=== PATIENT | female | born 1945 | race Caucasian/White ===

== ENCOUNTER → 2016-10-12 | Outpatient (CLI) | payer MEDICARE, OTHER ==
[~2016-10-12] MED LIST: ALDACTONE25 MG PO; ATIVAN 0.5MG0.5 MG PO; CENTRUM SILVER1 EAC4 PO; COLACE100 MG PO; COMPAZINE10 MG PO; CPAP INH; FEMARA2.5 MG PO; LEVOTHROID (S200 MCG PO; LEVOTHROID (SY25 MCG PO; MIRALAX17 GM PO; NORCO 5-325 MG1 TAB PO; NORCO 5-325 TA1 EACH PO; PRAVACHOL20 MG PO; SPRYCEL100 MG PO; ULTRAM50 MG PO; VFEND200 MG PO; VITAMIN D10000 UNIT PO; ZOLOFT100 MG PO; ZOVIRAX200 MG PO
== END | disposition disaster alternative care site (69) ==
LOC: GRAD 10:55
DX: C50.412 Malignant neoplasm of upper-outer quadrant of left female breast (principal); D46.21 Refractory anemia with excess of blasts 1; D61.818 Other pancytopenia

== ENCOUNTER 2016-10-24 08:08 | Inpatient (IN) | payer MEDICARE, OTHER ==
[~2016-10-24] VITALS: Ht 170.2 cm; Wt 109.3 kg
--- NOTE | ~2016-10-24 | ER ---
[facility] AGE: 71 Y [address] ROOM: [place] [address] LOCATION: [facility] [place] ADMIT DATE: 10/24/2016 ER/Outpatient Report DISCHARGE DATE: FAMILY PHYSICIAN: BRADLEY PEDROZA MD ATTENDING PHYSICIAN: GILBERT RHODES Time of Arrival: Time of Evaluation: Admission date and time documented in the medical record. I saw the patient at 0825 hours. CHIEF COMPLAINT: Nausea, vomiting, and left leg pain. She also has petechiae that has developed on her face, chest, and extremities. HISTORY OF PRESENT ILLNESS: The patient by history has myelodysplastic syndrome, undergoing oral chemotherapy at the present time. The patient came in thinking that her platelets were low and that was causing her petechiae and bruising. The patient also has a history of thyroid cancer and left breast cancer, status post left mastectomy. No lightheadedness, dizziness, syncope, or near syncope. No fall or trauma. No recent colds, coughs, flus, fever, chills, or sweats. No headache, eyes, ears, nose, throat, neck, or spine pain. No chest pain. Some shortness of breath. No abdominal pain. She has had nausea, vomiting. No diarrhea. No urinary complaints. No joint or muscle swelling, redness, or pain. She has had the petechiae, skin eruptions, and bruising. No history of neurological changes, endocrine problems. The patient does have anxiety and depression, but no psychosis. HOME MEDICATIONS: See attached medication list. ALLERGIES: ERYTHROMYCIN, AMBIEN, AND PERCOCET. SOCIAL HISTORY: Nonsmoker and nondrinker. SIGNIFICANT PAST MEDICAL HISTORY: 1. Left breast cancer. 2. Thyroid cancer. 3. Hypothyroidism. 4. Depression. 5. Anxiety. 6. Obstructive sleep apnea, using CPAP. 7. Myelodysplastic syndrome. [facility] AGE: 71 Y [address] ROOM: [place] [address] LOCATION: [facility] [place] ADMIT DATE: 10/24/2016 ER/Outpatient Report DISCHARGE DATE: FAMILY PHYSICIAN: BRADLEY PEDROZA MD ATTENDING PHYSICIAN: GILBERT RHODES 8. Thyroid cancer. PAST SURGICAL HISTORY: Operations: 1. Left mastectomy. 2. Right breast biopsy. 3. Radiation therapy and chemotherapy. REVIEW OF SYSTEMS: All systems reviewed by me are negative with the exception of those discussed in the History of the Present Illness. PHYSICAL EXAMINATION: VITAL SIGNS: Temperature 99.5, tympanic; pulse 79, regular; respiratory rate 16; blood pressure 181/72; and O2 saturation on room air is 95%. HEENT: Head; normocephalic. No abrasion, contusion, laceration, or swelling of the scalp or face. Eyes; extraocular muscles intact. PERRL. Sclerae and conjunctivae clear, nonicteric. Ears; clear TMs bilaterally. Nose; clear. Throat; clear. Mucous membranes moist. NECK: No nuchal rigidity. No thyromegaly or cervical lymphadenopathy. LUNGS: Clear. Good air flow. No rales, rhonchi, or wheezes. HEART: Regular. Pulses are palpable. No chest wall or ribcage pain to palpation. ABDOMEN: Soft, mildly obese, and nondistended. No organomegaly or abnormal masses palpable. No CVA tenderness. EXTREMITIES: No peripheral edema, cyanosis, or deformity. NEUROLOGIC: Cranial nerves intact. No lateralizing signs. The patient is awake, cooperative. Motor and sensory intact. Vascular intact. SKIN: The patient has petechiae diffusely on her face, chest, and extremities and some bruising on her left chest, and arms and legs. LABORATORY DATA AND IMAGING STUDIES: CBC showed a white count of 3400, 47 segs, 15 lymphs, 2 monos, and 1 eosinophil. Hemoglobin was 7.0 with a hematocrit of 23.6, and platelet count was 6000. Sedimentation rate was 19, PTT was 25, and prothrombin time was 11.4 with an INR of 1.08. Urine showed 10-20 whites, 10-20 reds, 0-2 epithelial cells, negative bacteria per high-powered field, and negative nitrites. CMS was normal except for an elevated glucose of 135, elevated creatinine of 1.3, and low GFR at 40. Amylase was 152, lipase was 213, and CPK was 230. Point of care cardiac enzymes were normal. CRP was 0.91. Lactate was 1.6. Clot tube was drawn. I did send down an order for type and crossmatch 2 units of packed red blood cells plus 2 units of platelets. IMPRESSION: 1. Thrombocytopenia with a platelet count of 6000. Diffuse petechiae and PATIENT'S NAME: CE CALLOWAY [facility] AGE: 71 Y [address] ROOM: [address] [address] LOCATION: [facility] [place] ADMIT DATE: 10/24/2016 ER/Outpatient Report DISCHARGE DATE: FAMILY PHYSICIAN: BRADLEY PEDROZA MD ATTENDING PHYSICIAN: GILBERT RHODES. 2. Anemia with a hemoglobin of 7.0. 3. History of myelodysplastic syndrome. 4. History of left breast cancer. 5. History of thyroid cancer. 6. History of hypothyroidism. 7. History of obstructive sleep apnea, on CPAP. 8. History of depression. PLAN: I did discuss the patient with Dr. Boateng, oncologist. Dr. Boateng wanted to give the patient 2 units of packed red blood cells and 2 units of platelets. The patient will be admitted for observation under the care of Dr. Rhodes, hospitalist. I did discuss the patient with Dr. Rhodes. He will admit the patient. Discussion ensued with the patient concerning my findings and recommendations, she understands. The patient will be admitted for transfusion of 2 units of platelets and 2 units of packed red blood cells. MD NAGI MUELLER/modl /[id number] d: 10/24/16 1255 t: 10/25/16 1837, OUTPATIENT REPORT
--- NOTE | ~2016-10-24 | HP ---
PATIENT'S NAME: CE CALLOWAY [facility] AGE: 71 Y [address] ROOM: [address] [place] [address] LOCATION: [facility] [place] ADMIT DATE: 10/24/2016 History & Physical DISCHARGE DATE: FAMILY PHYSICIAN: BRADLEY PEDROZA MD ATTENDING PHYSICIAN: GILBERT RHODES DATE OF SERVICE: CHIEF COMPLAINT: Lightheadedness and petechia in the abdomen and bilateral upper and lower extremities. HISTORY OF PRESENT ILLNESS: This is a 71-year-old, female with past medical history remarkable for myelodysplastic syndrome diagnosed in September 2016 from a bone marrow biopsy, currently on chemotherapy. The story is that yesterday the patient has been feeling lightheaded, especially when getting up from a sitting position. She also complains of petechia in both wrists and hands and also both lower extremities, in both thighs and calves. Also a few petechial spots in the anterior chest and abdomen. This is new and this happened about a few days ago. Few days ago, she also complained of a few episodes of bright red blood per rectum which already stopped 2 days ago. Her last bowel movement was yesterday and today and they were normal. The patient also had an episode of epistaxis that resolved by itself 2 days ago. Also a few blisters in the oral mucosa, that happened a few days ago. She denies any gross hematuria. She denies any coffee-grounds emesis or hematemesis. She also complained of some pain in the left posterior calf and has also radiated to the left upper thigh. Because of these findings, the patient came here for evaluation. REVIEW OF SYSTEMS: As mentioned in the history of present illness. All other systems reviewed and negative except those mentioned in the history of present illness. PAST MEDICAL HISTORY: 1. Left breast cancer, diagnosed in 2016, status post mastectomy and sentinel lymph node biopsy. 2. Myelodysplastic syndrome, diagnosed in September 2016 from a bone marrow biopsy, currently on chemotherapy. 3. History of thyroid papillary cancer, status post resection, thyroidectomy, and also radioactive iodine ablation. The patient denies any other past medical history. ALLERGIES: THE PATIENT STATES THAT SHE IS ALLERGIC TO PERCOCET, AMBIEN, AND ERYTHROMYCIN. THE PATIENT DOES NOT REMEMBER THE REACTIONS. PATIENT'S NAME: CE CALLOWAY [facility] AGE: 71 Y [address] ROOM: [address] [address] LOCATION: [facility] [place] ADMIT DATE: 10/24/2016 History & Physical DISCHARGE DATE: FAMILY PHYSICIAN: BRADLEY PEDROZA MD ATTENDING PHYSICIAN: GILBERT RHODES MEDICATIONS: Currently have been reconciled. PAST SURGICAL HISTORY: 1. Status post thyroidectomy. 2. Status post left breast cancer, status post mastectomy and lymph nodes sentinel biopsy. 3. Status post bone marrow biopsy. 4. Status post lower back surgery. 5. Status post tonsillectomy. 6. Status post cholecystectomy. SOCIAL HISTORY: The patient quit smoking cigarettes in 1982, she was a former smoker about a half pack per day for roughly 10 years. The patient denies any alcohol or illegal drug use. FAMILY HISTORY: Father from some kind of lung problem that she could not remember. Mother from lung cancer at advanced age. PHYSICAL EXAMINATION: VITAL SIGNS: At the time of my dictation, temperature 98, heart rate 85, respirations 16, blood pressure 122/70, and saturation 96% on room air. GENERAL APPEARANCE: Alert and oriented x3, in no acute distress. HEENT: Pupils are equally round and reactive to light. Extraocular muscles intact. Nasal turbinates are normal bilaterally. Moist oral mucosa. There is some mucositis in the oral mucosa. Some dried blood around the edges of the mucositis. NECK: No JVD. CARDIOVASCULAR: Regular rate and rhythm. Normal S1, S2. No murmur, no rubs, no gallops. RESPIRATORY: Clear. Chest wall nontender to palpation. ABDOMEN: Obese, soft, nontender, and nondistended. Bowel sounds present. No hepatosplenomegaly. No abdominal rigidity. EXTREMITIES: No edema in upper or lower extremity. SKIN: Petechia in both wrists and hands and anterior chest and anterior abdomen as well as bilateral thighs and calves. Also has skin rash like erythema that is nontender around the postsurgical site of the left mastectomy area. Is nontender and also nonpruritic. In the anterior abdominal skin fold area, there is also an area of erythema, is also nontender and also nonpruritic. MUSCULOSKELETAL: No pain on palpation of the bilateral posterior calves and bilateral posterior thighs. Homans sign negative. PATIENT'S NAME: CE CALLOWAY [facility] AGE: 71 Y [address] ROOM: [id number] [place] [id number] LOCATION: [facility] [place] ADMIT DATE: 10/24/2016 History & Physical DISCHARGE DATE: FAMILY PHYSICIAN: BRADLEY PEDROZA MD ATTENDING PHYSICIAN: GILBERT RHODES NEUROLOGICAL: Grossly nonfocal. LABORATORY DATA: Lactic acid 1.6. Troponin less than 0.04. CPK 230. White blood cells 3.4, hemoglobin 7, hematocrit 23.6, MCV 73.3, and platelets 6. Glucose 135, BUN 20, creatinine 1.3, sodium 137, potassium 4.6, chloride 104, and CO2 24. Calcium 8.6, total protein 7.6, albumin 3.8, AST 39, ALT 31, alkaline phosphatase 80, and total bilirubin 0.6. Anion gap 13.6. Globulin 3.8. GFR 40. ESR 19. INR 1.08. PTT 25. Urinalysis: Leukocytes 25, red blood cells 10-20, blood 25, white blood cells 10-20, negative nitrite, negative bacteria. Amylase 152, lipase 213. CK-MB 1.3. CRP 0.91. Procalcitonin less than 0.05. IMAGING STUDIES: KUB shows no free air in the abdomen. Nonspecific bowel gas pattern. Bowel does not appear to be obstructed. ASSESSMENT/PLAN: 1. Petechia from spontaneous hemorrhage in the setting of thrombocytopenia less than 10,000 in the setting of myelodysplastic syndrome: Platelet transfusion 2 units of irradiated platelets. The goal will be to keep the platelets above 50,000 given that patient is actively bleeding from petechia. Also, first we will give the platelet 2 units bolus and then we will check the CBC and give more platelet if necessary. Right after the 2 units of platelets, she will be given packed red blood cell transfusion 2 units also, also run bolus, and we will be checking the hemoglobin and hematocrit 1 hour after the transfusion with the goal be above 8. The platelets and red blood cell transfusion have already been ordered by the primary oncologist, Dr. Boateng. We will be checking vital signs every 2 hours. We will run IV fluids normal saline 100 mL/h. Further plan depends on clinical course. Can have regular diet. Fall precaution. 2. History of bright red blood per rectum: Already resolved according to the patient. In the setting of platelets less than 10,000 and currently having spontaneous hemorrhage from the petechia, I will give her Protonix 40 mg p.o. b.i.d. We will be checking a Hemoccult blood test as well. 3. History of epistaxis and mucositis in the mouth: Currently getting platelet transfusion. Currently does not have active epistaxis and also mucositis is not actively bleeding. 4. Pain in the left posterior calf and left posterior thigh: I will get a venous duplex ultrasound to rule out DVT. If it is positive, the patient cannot be on anticoagulation due to low platelet and active hemorrhage from the petechia. Therefore, she will require IVC filter placement. 5. Lightheadedness: This is likely from dehydration given that she has evidence of acute kidney injury. Also from the acute blood loss anemia from spontaneous hemorrhage from thrombocytopenia. Fall precaution. PATIENT'S NAME: CE CALLOWAY [facility] AGE: 71 Y [address] ROOM: [place] [address] LOCATION: [facility] [place] ADMIT DATE: 10/24/2016 History & Physical DISCHARGE DATE: FAMILY PHYSICIAN: BRADLEY PEDROZA MD ATTENDING PHYSICIAN: GILBERT RHODES 6. Acute kidney injury: Getting normal saline running at 100 mL/h. We will check a renal panel later on. Further plan depends on clinical course. 7. DVT prophylaxis: No pharmacological medication in the setting of active bleeding and thrombocytopenia. No compression devices until DVT has been ruled out from the venous duplex ultrasound. Time spent in care on the day of admission 50 minutes including chart review, interviewing the patient, examining the patient, addressing all the questions and concerns the patient and her family members had, and going over the plan of care with the patient and nurses. Further plan of care will be addressed by the hospitalist who will be taking over the care at 8 AM on 10/24/16. GILBERT RHODES MD CC/modl /[id number] D: 924 T: 750 HISTORY & PHYSICAL
--- NOTE | ~2016-10-24 | DS ---
PATIENT'S NAME: CE CALLOWAY [facility] AGE: 71 Y [address] ROOM: [address] [place] [id number] LOCATION: [facility] [place] ADMIT DATE: 10/25/2016 Discharge Summary DISCHARGE DATE: 10/30/2016 FAMILY PHYSICIAN: Chase Ivey MD ATTENDING PHYSICIAN: Odin Campoverde PRIMARY DIAGNOSES: 1. Right retroperitoneal hemorrhage. 2. Thrombocytopenia secondary to chemotherapy and myelodysplastic syndrome. 3. Myelodysplastic syndrome. 4. Pancytopenia secondary to chemotherapy and myelodysplastic syndrome. 5. Obstipation. 6. Heme-positive stools. 7. Obstructive sleep apnea. 8. History of breast cancer. 9. History of thyroid cancer. OPERATIONS OR PROCEDURES: CT scan of the abdomen and pelvis was carried out on the date of admission demonstrating a right retroperitoneal hemorrhage, measuring 9 x 5 x 7 cm. Soft tissue thickening at the left chest wall. Colon diverticula and right nephrolithiasis. HISTORY OF PRESENTING ILLNESS/REASON FOR ADMISSION: Please refer to the H and P dictated on 10/25/2016. HOSPITAL COURSE: The patient was admitted to the hospital as noted above with a presumptive diagnosis of weakness, rectal bleeding, and petechiae. There was concern for an acute GI bleed. She was noted to be pancytopenic, and reference was made to her significant history of neoplasm and associated chemotherapy treatments. She was hemodynamically stable over the course of her hospital stay. CT scan of the abdomen and pelvis was requested at the point of hospitalization, although somewhat unexpected that it did demonstrate right retroperitoneal fluid collection consistent with hematoma. She was relatively asymptomatic, however. She was monitored clinically and serial hemoglobins were obtained. Her clinical condition remained relatively stable, although she was weak and lightheaded. She did receive PRBC transfusion, and her hemoglobin increased from 5.6 to 8.4. This remained relatively stable over the course of the ensuing days trending down to 8.1 by 10/26/2016 and 7.4 by 10/28/2016. Her platelets were 6 at the point of admission, and she also received platelet transfusion. Her platelets improved significantly to 70, but gradually trended down. She did receive an additional platelet transfusion on [facility] AGE: 71 Y [address] ROOM: [address] [address] LOCATION: [facility] [place] ADMIT DATE: 10/25/2016 Discharge Summary DISCHARGE DATE: 10/30/2016 FAMILY PHYSICIAN: Chase Ivey MD ATTENDING PHYSICIAN: Odin Campoverde 10/29/2016 after her platelets declined to 10. Her stools were heme positive, but in view of the fact that she was thrombocytopenic and otherwise hemodynamically stable, additional gastroenterologic workup was deferred during this hospital stay. It was suggested that she could have gastroenterologic evaluation including endoscopies at some point after discharge. Hematology and Oncology did provide clinical followup during the course of her hospital stay here. She received some physical therapy and occupational therapy for strengthening and gait assessment. By the end of the day 7th day of her hospital stay, it was felt she would be stable enough for discharge home with plans for close clinical followup with Hematology/Oncology and re-transfusion if necessary. DISCHARGE INSTRUCTIONS: DIET: Regular as tolerated. ACTIVITY: As tolerated. MEDICATIONS: 1. Acyclovir 400 mg p.o. b.i.d. 2. Colace 100 mg p.o. b.i.d. 3. Femara 2.5 mg p.o. daily. 4. Levothyroxine 225 mcg p.o. q.a.m. 5. Pravastatin 20 mg p.o. q.h.s. 6. Sertraline 100 mg p.o. daily. 7. Voriconazole 200 mg p.o. b.i.d. 8. MiraLAX 17 g p.o. b.i.d. 9. Multivitamin daily. 10. Vitamin D 10,000 units p.o. weekly. 11. Spironolactone 25 mg p.o. b.i.d. 12. CPAP at h.s. 13. Tramadol 50 to 100 mg p.o. q.6 hours p.r.n. pain. FOLLOWUP: She will follow up with Dr. Boateng in 2 days. She will follow up with Dr. Chase Ivey in 3-5 days. CONDITION ON DISCHARGE: Fair. Total time spent on discharge process 40 minutes. PATIENT'S NAME: HARRYCE [facility] AGE: 71 Y [address] ROOM: [address] [address] LOCATION: [facility] [place] ADMIT DATE: 10/25/2016 Discharge Summary DISCHARGE DATE: 10/30/2016 FAMILY PHYSICIAN: Chase Ivey MD ATTENDING PHYSICIAN: Odin Campoverde MD AJS/modl /[id number] d: 11/09/16304 t: 11/09/16 195, DISCHARGE SUMMARY
--- NOTE | ~2016-10-24 | ENPV ---
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 Venous hemodynamics were evaluated with color flow and spectral Doppler. FINDINGS: The deep veins of the legs bilaterally show normal color flow and compressibility without thrombosis. IMPRESSION: NEGATIVE BILATERAL LOWER EXTREMITY VENOUS DOPPLER STUDY. Procedure Type of Study: Veins:Lower Extremities DVT Study, Venous Duplex Lower Extremity Bilateral. Patient Status:Routine. Study Location:Inpatient Portable. Velocities are measured in cm/s ; Diameters are measured in cm Right Lower Extremities DVT Study Measurements Right 2D and Doppler Measurements + + + + +------+------+ + !Location !Visualized!Compressibility!Thrombosis!Signal!Reflux!Reflux ! ! ! ! ! ! ! !(sec) ! + + + + +------+------+ + !GSV Thigh !Yes !Yes !None !Phasic!No ! ! + + + + +------+------+ + !Common !Yes !Yes !None !Phasic!No ! ! !Femoral ! ! ! ! ! ! ! + + + + +------+------+ + !Prox !Yes !Yes !None !Phasic!No ! ! !Femoral ! ! ! ! ! ! ! + + + + +------+------+ + !Mid Femoral!Yes !Yes !None !Phasic!No ! ! + + + + +------+------+ + !Dist !Yes !Yes !None !Phasic!No ! ! !Femoral ! ! ! ! ! ! ! + + + + +------+------+ + !Popliteal !Yes !Yes !None !Phasic!No ! ! + + + + +------+------+ + !Gastroc !Yes !Yes !None !Phasic!No ! ! + + + + +------+------+ + !PTV !Yes !Yes !None !Phasic!No ! ! + + + + +------+------+ + !Peroneal !Yes !Yes !None !Phasic!No ! ! + + + + +------+------+ + Left Lower Extremities DVT Study Measurements Left 2D and Doppler Measurements + + + + +------+------+ + !Location !Visualized!Compressibility!Thrombosis!Signal!Reflux!Reflux ! ! ! ! ! ! ! !(sec) ! + + + + +------+------+ + !GSV Thigh !Yes !Yes !None !Phasic!No ! ! + + + + +------+------+ + !Common !Yes !Yes !None !Phasic!No ! ! !Femoral ! ! ! ! ! ! ! + + + + +------+------+ + !Prox !Yes !Yes !None !Phasic!No ! ! !Femoral ! ! ! ! ! ! ! + + + + +------+------+ + !Mid Femoral!Yes !Yes !None !Phasic!No ! ! + + + + +------+------+ + !Dist !Yes !Yes !None !Phasic!No ! ! !Femoral ! ! ! ! ! ! ! + + + + +------+------+ + !Popliteal !Yes !Yes !None !Phasic!No ! ! + + + + +------+------+ + !Gastroc !Yes !Yes !None !Phasic!No ! ! + + + + +------+------+ + !PTV !Yes !Yes !None !Phasic!No ! ! + + + + +------+------+ + !Peroneal !Yes !Yes !None !Phasic!No ! ! + + + + +------+------+ + Signature dtt: dtkyle: 10/24/16 1433 Physician Self Edit
[~2016-10-24 08:08] MED LIST changes: -COLACE100 MG PO; -COMPAZINE10 MG PO; -FEMARA2.5 MG PO; -MIRALAX17 GM PO; -SPRYCEL100 MG PO; -ULTRAM50 MG PO; -VFEND200 MG PO; -ZOVIRAX200 MG PO
[2016-10-24 09:00] LABS: HEMATOCRIT 23.6 % (33.0-46.0); RDW-CV 17.5 % (11.9-14.6); WBC 3.4 K/uL (4.0-11.0)
[2016-10-24 09:18] LABS: INR - (THERAPEUTIC) 1.08 (0.92-1.07); PROTIME 11.4 SECONDS (9.8-11.4); PTT 25 SECONDS (25-32)
[2016-10-24 09:20] LABS: ALBUMIN 3.8 gm/dL (3.5-5.0); ALK PHOS 80 IU/L (33-138); ALT 31 IU/L (12-78); ANION GAP 13.6 (10.0-19.0); AST 39 IU/L (10-40); BLOOD UREA NITROGEN 20 mg/dL (6-24); CALCIUM 8.6 mg/dL (8.5-10.5); CHLORIDE 104 mMol/L (96-110); CO2 24 mMol/L (22-32); CPK 230 IU/L (21-215); CREATININE 1.3 mg/dL (0.5-1.1); POTASSIUM 4.6 mMol/L (3.7-5.1); SODIUM 137 mMol/L (135-145); TOTAL BILIRUBIN 0.6 mg/dL (0.0-1.5); TOTAL PROTEIN 7.6 g/dL (6.0-8.4)
[2016-10-24 09:21] LABS: ESTIMATED GFR (MDRD EQUATION) 40
[2016-10-24 09:29] LABS: MCH 21.7 pg (27.0-34.0); MCHC 29.7 gm/dL (32.0-36.5); MCV 73.3 fl (83.0-98.0); RBC 3.22 M/uL (3.50-5.50)
[2016-10-24 09:30] LABS: PLATELET COUNT 6 K/uL (150-450)
[2016-10-24 09:39] LABS: ABSOLUTE NEUTROPHIL CT (ANC) 1.6 K/uL (1.8-7.8); LYMPHOCYTE # 1.7 K/uL (0.8-4.0); LYMPHOCYTE % 50 %; MONOCYTE # 0.1 K/uL (0.0-1.0); SEGMENTED NEUTROPHIL # 1.6 K/uL (1.8-7.8); SEGMENTED NEUTROPHIL % 47 %
[2016-10-24 10:04] LABS: BILIRUBIN URINE NEGATIVE (NEGATIVE); BLOOD URINE 25 /UL (NEGATIVE); COLOR URINE YELLOW (YELLOW); GLUCOSE URINE NEGATIVE (NEGATIVE); KETONE URINE NEGATIVE (NEGATIVE); LEUKOCYTES URINE 25 /UL (NEGATIVE); NITRITE URINE NEGATIVE (NEGATIVE); PROTEIN URINE 30 mg/dL (NEGATIVE); SPEC GRAVITY URINE 1.015 (1.003-1.035); TURBIDITY URINE CLEAR (CLEAR); UROBILINOGEN URINE NORMAL (NORMAL)
[2016-10-24 10:18] LABS: BACTERIA URINE NEGATIVE (NEGATIVE); EPITHELIAL URINE 0-2 #/HPF (NEGATIVE)
[2016-10-24 15:53] LABS: HEMATOCRIT 19.1 % (33.0-46.0); RBC 2.58 M/uL (3.50-5.50); RDW-CV 17.7 % (11.9-14.6)
[2016-10-24 16:01] LABS: MCH 21.7 pg (27.0-34.0); MCHC 29.3 gm/dL (32.0-36.5); WBC 1.9 K/uL (4.0-11.0)
[2016-10-24 16:02] LABS: PLATELET COUNT 70 K/uL (150-450)
[2016-10-24 16:04] LABS: HEMOGLOBIN 5.6 g/dL (10.0-15.0)
[2016-10-24 17:51] LABS: ABSOLUTE NEUTROPHIL CT (ANC) 1.1 K/uL (1.8-7.8); BANDED NEUTROPHIL # 0.1 K/uL (0.0-0.1); BANDED NEUTROPHILS % 6 %; LYMPHOCYTE # 0.8 K/uL (0.8-4.0); LYMPHOCYTE % 40 %; SEGMENTED NEUTROPHIL % 53 %
[2016-10-24] MEDS ORDERED: ULTRAM50 MG PO (19:02)
[2016-10-24] MEDS ORDERED: COMPAZINE10 MG PO (19:02)
[2016-10-24] MEDS ORDERED: VFEND200 MG PO (19:04)
[2016-10-24] MEDS ORDERED: FEMARA2.5 MG PO (19:04)
[2016-10-24] MEDS ORDERED: SPRYCEL100 MG PO (19:05)
[2016-10-24] MEDS ORDERED: ZOVIRAX200 MG PO (19:05)
[2016-10-24] MEDS ORDERED: CPAP INH (19:23)
[2016-10-24 23:27] LABS: HEMOGLOBIN 8.4 g/dL (10.0-15.0); RDW-CV 17.6 % (11.9-14.6); WBC 2.6 K/uL (4.0-11.0)
[2016-10-24 23:29] LABS: HEMATOCRIT 27.3 % (33.0-46.0); MCH 23.9 pg (27.0-34.0); MCHC 30.8 gm/dL (32.0-36.5); RBC 3.51 M/uL (3.50-5.50)
[2016-10-24 23:30] LABS: MCV 77.8 fl (83.0-98.0); PLATELET COUNT 49 K/uL (150-450)
[2016-10-24 23:42] LABS: ANION GAP 12.4 (10.0-19.0); CALCIUM 7.7 mg/dL (8.5-10.5); CREATININE 1.2 mg/dL (0.5-1.1); POTASSIUM 4.4 mMol/L (3.7-5.1)
[2016-10-25 03:56] LABS: HEMATOCRIT 27.7 % (33.0-46.0); HEMOGLOBIN 8.8 g/dL (10.0-15.0); MCH 24.4 pg (27.0-34.0); MCHC 31.8 gm/dL (32.0-36.5); MCV 76.7 fl (83.0-98.0); RBC 3.61 M/uL (3.50-5.50); RDW-CV 17.2 % (11.9-14.6); WBC 2.6 K/uL (4.0-11.0)
[2016-10-25 03:57] LABS: PLATELET COUNT 45 K/uL (150-450)
[2016-10-25 08:06] LABS: HEMATOCRIT 27.6 % (33.0-46.0); HEMOGLOBIN 8.4 g/dL (10.0-15.0); MCH 23.9 pg (27.0-34.0); MCHC 30.4 gm/dL (32.0-36.5); MCV 78.4 fl (83.0-98.0); RBC 3.52 M/uL (3.50-5.50); RDW-CV 17.8 % (11.9-14.6); WBC 2.2 K/uL (4.0-11.0)
[2016-10-25 08:07] LABS: PLATELET COUNT 49 K/uL (150-450)
[2016-10-25 08:19] LABS: ANION GAP 8.7 (10.0-19.0); CALCIUM 7.5 mg/dL (8.5-10.5); CREATININE 1.1 mg/dL (0.5-1.1); POTASSIUM 4.7 mMol/L (3.7-5.1)
[2016-10-25 13:51] LABS: HEMATOCRIT 27.6 % (33.0-46.0); HEMOGLOBIN 8.5 g/dL (10.0-15.0); MCHC 30.8 gm/dL (32.0-36.5); PLATELET COUNT 40 K/uL (150-450); RBC 3.54 M/uL (3.50-5.50); WBC 2.5 K/uL (4.0-11.0)
[2016-10-25 23:29] LABS: HEMATOCRIT 26.7 % (33.0-46.0); HEMOGLOBIN 8.5 g/dL (10.0-15.0); MCH 24.4 pg (27.0-34.0); MCHC 31.8 gm/dL (32.0-36.5); MCV 76.7 fl (83.0-98.0); RBC 3.48 M/uL (3.50-5.50); RDW-CV 18.6 % (11.9-14.6); WBC 2.7 K/uL (4.0-11.0)
[2016-10-25 23:32] LABS: PLATELET COUNT 34 K/uL (150-450)
[2016-10-26 06:17] LABS: HEMATOCRIT 25.2 % (33.0-46.0); MCV 78.3 fl (83.0-98.0); RBC 3.22 M/uL (3.50-5.50); RDW-CV 18.6 % (11.9-14.6)
[2016-10-26 06:20] LABS: HEMOGLOBIN 7.7 g/dL (10.0-15.0); MCH 23.9 pg (27.0-34.0); MCHC 30.6 gm/dL (32.0-36.5); PLATELET COUNT 28 K/uL (150-450); WBC 1.9 K/uL (4.0-11.0)
[2016-10-26 06:28] LABS: ANION GAP 9.9 (10.0-19.0); POTASSIUM 3.9 mMol/L (3.7-5.1)
[2016-10-26 06:29] LABS: CALCIUM 7.3 mg/dL (8.5-10.5)
[2016-10-26 14:03] LABS: HEMATOCRIT 26.2 % (33.0-46.0); HEMOGLOBIN 8.1 g/dL (10.0-15.0); MCH 24.1 pg (27.0-34.0); MCHC 30.9 gm/dL (32.0-36.5); PLATELET COUNT 25 K/uL (150-450); RBC 3.36 M/uL (3.50-5.50); RDW-CV 18.8 % (11.9-14.6); WBC 1.8 K/uL (4.0-11.0)
[2016-10-26 22:10] LABS: HEMATOCRIT 24.2 % (33.0-46.0); HEMOGLOBIN 7.5 g/dL (10.0-15.0); MCH 24.2 pg (27.0-34.0); MCV 78.1 fl (83.0-98.0); PLATELET COUNT 22 K/uL (150-450); RDW-CV 19.2 % (11.9-14.6); WBC 1.8 K/uL (4.0-11.0)
[2016-10-27 12:36] LABS: HEMATOCRIT 24.6 % (33.0-46.0); MCV 77.1 fl (83.0-98.0); RBC 3.19 M/uL (3.50-5.50); RDW-CV 19.4 % (11.9-14.6)
[2016-10-27 13:14] LABS: HEMOGLOBIN 7.7 g/dL (10.0-15.0); MCH 24.1 pg (27.0-34.0); MCHC 31.3 gm/dL (32.0-36.5); WBC 1.5 K/uL (4.0-11.0)
[2016-10-27 13:17] LABS: PLATELET COUNT 17 K/uL (150-450)
[2016-10-27 13:23] LABS: ABSOLUTE NEUTROPHIL CT (ANC) 0.7 K/uL (1.8-7.8); BANDED NEUTROPHILS % 2 %; LYMPHOCYTE # 0.7 K/uL (0.8-4.0); LYMPHOCYTE % 46 %; SEGMENTED NEUTROPHIL # 0.7 K/uL (1.8-7.8); SEGMENTED NEUTROPHIL % 47 %
[2016-10-27 18:26] LABS: HEMATOCRIT 24.5 % (33.0-46.0); MCV 77.8 fl (83.0-98.0); RBC 3.15 M/uL (3.50-5.50); RDW-CV 19.6 % (11.9-14.6)
[2016-10-27 18:31] LABS: HEMOGLOBIN 7.5 g/dL (10.0-15.0); MCH 23.8 pg (27.0-34.0); MCHC 30.6 gm/dL (32.0-36.5); WBC 1.5 K/uL (4.0-11.0)
[2016-10-27 18:33] LABS: PLATELET COUNT 16 K/uL (150-450)
[2016-10-27 20:21] LABS: ABSOLUTE NEUTROPHIL CT (ANC) 0.7 K/uL (1.8-7.8); LYMPHOCYTE # 0.8 K/uL (0.8-4.0); LYMPHOCYTE % 50 %; SEGMENTED NEUTROPHIL # 0.7 K/uL (1.8-7.8); SEGMENTED NEUTROPHIL % 45 %
[2016-10-28 06:17] LABS: HEMATOCRIT 26.5 % (33.0-46.0); HEMOGLOBIN 8.4 g/dL (10.0-15.0); MCH 24.2 pg (27.0-34.0); MCHC 31.7 gm/dL (32.0-36.5); MCV 76.4 fl (83.0-98.0); RBC 3.47 M/uL (3.50-5.50); RDW-CV 19.9 % (11.9-14.6)
[2016-10-28 06:18] LABS: ANION GAP 11.7 (10.0-19.0); BLOOD UREA NITROGEN 12 mg/dL (6-24); CHLORIDE 111 mMol/L (96-110); CO2 24 mMol/L (22-32); CREATININE 0.9 mg/dL (0.5-1.1); ESTIMATED GFR (MDRD EQUATION) > 60; POTASSIUM 3.7 mMol/L (3.7-5.1); SODIUM 143 mMol/L (135-145)
[2016-10-28 06:30] LABS: WBC 1.4 K/uL (4.0-11.0)
[2016-10-28 06:32] LABS: PLATELET COUNT 11 K/uL (150-450)
[2016-10-28 07:24] LABS: ABSOLUTE NEUTROPHIL CT (ANC) 0.7 K/uL (1.8-7.8); BANDED NEUTROPHILS % 3 %; LYMPHOCYTE # 0.6 K/uL (0.8-4.0); LYMPHOCYTE % 44 %; SEGMENTED NEUTROPHIL # 0.6 K/uL (1.8-7.8); SEGMENTED NEUTROPHIL % 45 %
[2016-10-28 16:55] LABS: MCV 77.7 fl (83.0-98.0); RBC 3.09 M/uL (3.50-5.50); RDW-CV 19.7 % (11.9-14.6)
[2016-10-28 17:01] LABS: HEMOGLOBIN 7.4 g/dL (10.0-15.0); MCH 23.9 pg (27.0-34.0); MCHC 30.8 gm/dL (32.0-36.5); WBC 1.2 K/uL (4.0-11.0)
[2016-10-28 17:02] LABS: PLATELET COUNT 10 K/uL (150-450)
[2016-10-28 18:05] LABS: ABSOLUTE NEUTROPHIL CT (ANC) 0.8 K/uL (1.8-7.8); BANDED NEUTROPHIL # 0.1 K/uL (0.0-0.1); BANDED NEUTROPHILS % 10 %; LYMPHOCYTE # 0.4 K/uL (0.8-4.0); LYMPHOCYTE % 32 %; SEGMENTED NEUTROPHIL # 0.7 K/uL (1.8-7.8); SEGMENTED NEUTROPHIL % 54 %
[2016-10-29 06:25] LABS: HEMATOCRIT 21.8 % (33.0-46.0); MCV 78.1 fl (83.0-98.0); MPV 9.9 fl (9.4-12.4); RBC 2.79 M/uL (3.50-5.50); RDW-CV 19.9 % (11.9-14.6)
[2016-10-29 06:27] LABS: HEMOGLOBIN 6.7 g/dL (10.0-15.0); MCHC 30.7 gm/dL (32.0-36.5); WBC 1.1 K/uL (4.0-11.0)
[2016-10-29 06:28] LABS: PLATELET COUNT 57 K/uL (150-450)
[2016-10-29 06:59] LABS: ABSOLUTE NEUTROPHIL CT (ANC) 0.5 K/uL (1.8-7.8); BANDED NEUTROPHIL # 0.1 K/uL (0.0-0.1); BANDED NEUTROPHILS % 9 %; LYMPHOCYTE # 0.5 K/uL (0.8-4.0); LYMPHOCYTE % 45 %; MONOCYTE # 0.1 K/uL (0.0-1.0); SEGMENTED NEUTROPHIL # 0.4 K/uL (1.8-7.8); SEGMENTED NEUTROPHIL % 35 %
[2016-10-30 05:34] LABS: HEMATOCRIT 24.8 % (33.0-46.0); HEMOGLOBIN 7.7 g/dL (10.0-15.0); MCH 24.6 pg (27.0-34.0); MCV 79.2 fl (83.0-98.0); MPV 8.3 fl (9.4-12.4); PLATELET COUNT 38 K/uL (150-450); RBC 3.13 M/uL (3.50-5.50); RDW-CV 20.5 % (11.9-14.6); WBC 1.3 K/uL (4.0-11.0)
[2016-10-30 05:49] LABS: ANION GAP 10.9 (10.0-19.0); CALCIUM 7.5 mg/dL (8.5-10.5); POTASSIUM 3.9 mMol/L (3.7-5.1)
[2016-10-30 06:15] LABS: ABSOLUTE NEUTROPHIL CT (ANC) 0.4 K/uL (1.8-7.8); LYMPHOCYTE # 0.7 K/uL (0.8-4.0); LYMPHOCYTE % 53 %; MONOCYTE # 0.1 K/uL (0.0-1.0); SEGMENTED NEUTROPHIL # 0.4 K/uL (1.8-7.8); SEGMENTED NEUTROPHIL % 32 %
[2016-10-30] MEDS ORDERED: COLACE100 MG PO (10:37)
[2016-10-30] MEDS ORDERED: MIRALAX17 GM PO (10:41)
== END 2016-10-30 14:36 | disposition disaster alternative care site (69) | DRG 393 ==
LOC: GMED 08:08 → GMSU 11:23
PROVIDERS: Emergency Medicine; Family Medicine; Nurse Practitioner Family; ADMIT Internal Medicine
PROC: 30233R1 Transfusion of Nonautologous Platelets into Peripheral Vein, Percutaneous Approach (ICD-10-PCS; principal; 2016-10-28)
DX: K66.1 Hemoperitoneum (principal); D61.810 Antineoplastic chemotherapy induced pancytopenia; N17.9 Acute kidney failure, unspecified; D69.6 Thrombocytopenia, unspecified; Z99.81 Dependence on supplemental oxygen; D46.9 Myelodysplastic syndrome, unspecified; K59.00 Constipation, unspecified; D62 Acute posthemorrhagic anemia; G47.33 Obstructive sleep apnea (adult) (pediatric); Z85.3 Personal history of malignant neoplasm of breast; Z85.850 Personal history of malignant neoplasm of thyroid; Z92.21 Personal history of antineoplastic chemotherapy; F41.9 Anxiety disorder, unspecified; F32.9 Major depressive disorder, single episode, unspecified; E89.0 Postprocedural hypothyroidism; Z87.891 Personal history of nicotine dependence
CPT/HCPCS: G0378; J1200; J1940; J2270; J2405; J3010; J7030; J7050; J7612; P9037; P9040

== ENCOUNTER → 2016-12-23 | Outpatient (CLI) | payer MEDICARE, OTHER ==
[~2016-12-23] MED LIST changes: +COLACE100 MG PO; +COMPAZINE10 MG PO; +FEMARA2.5 MG PO; +MIRALAX17 GM PO; +SPRYCEL100 MG PO; +ULTRAM50 MG PO; +VFEND200 MG PO; +ZOVIRAX200 MG PO
== END | disposition disaster alternative care site (69) ==
LOC: GRAD 10:00
DX: D70.9 Neutropenia, unspecified (principal); C50.412 Malignant neoplasm of upper-outer quadrant of left female breast; C79.51 Secondary malignant neoplasm of bone; D46.21 Refractory anemia with excess of blasts 1; R06.89 Other abnormalities of breathing; Z79.811 Long term (current) use of aromatase inhibitors

== ENCOUNTER → 2016-12-31 | Outpatient (CLI) | payer MEDICARE, OTHER ==
--- NOTE | ~2016-12-31 | PUL ---
PATIENT'S NAME: CE CALLOWAY [facility] AGE: 71 Y [address] ROOM: [place] [address] LOCATION: [facility] ADMIT DATE: 12/31/2016 Pulmonary DISCHARGE DATE: FAMILY PHYSICIAN: BRADLEY PEDROZA MD ATTENDING PHYSICIAN: IDA YUAN NAME OF PROCEDURE: Pulmonary Function Test DATE OF PROCEDURE: December 31, 2016 TECH: ATripe, COURT RECORDER REASON FOR EXAM: Shortness of breath RESULTS: 1. FVC was 1.84 liters which is 52% of predicted and low, FEV1 was 1.31 liters which is 49% of predicted and low, and FEV1/FVC was 71% and normal. The flow volume curve did not reveal any significant airflow limitation. After bronchodilator administration FVC increased to 1.95 liters which is a 6% increase and FEV1 increased to 1.41 liters which is an 8% increase. FEV1/FVC was 73%. 2. DLCO was 13.7 with an adjusted DLCO of 17.2 which is 67% of predicted and just below the lower limit of normal which is 17.4. 3. Total lung capacity was 5.16 liters which is 92% of predicted and normal, and residual volume was 2.29 liters which is 101% of predicted and normal. PHYSICIAN INTERPRETATION: The patient has no airflow limitation and no significant bronchodilator response. Her diffusion capacity is mildly low. There is no evidence of restrictive lung disease. She has a significant decrease in her FVC and FEV1, which can be present in chronic airway disease. Clinical correlation is advised. MD OSVALDO BOOGIE/anthony /[id number] dtt: 01/06/17 0729 , IDA YUAN dtd: 01/05/17 1132
== END | disposition disaster alternative care site (69) ==
LOC: GRTH 14:45
DX: R06.02 Shortness of breath (principal); Z87.09 Personal history of other diseases of the respiratory system

== ENCOUNTER → 2017-01-14 | Outpatient (CLI) | payer MEDICARE, OTHER | END | disposition disaster alternative care site (69) | LOC: GRAD 11:30 | DX: R06.00 Dyspnea, unspecified (principal); R05 Cough; D61.818 Other pancytopenia; C50.412 Malignant neoplasm of upper-outer quadrant of left female breast; C79.51 Secondary malignant neoplasm of bone; D46.21 Refractory anemia with excess of blasts 1; H69.92 Unspecified Eustachian tube disorder, left ear; Z79.811 Long term (current) use of aromatase inhibitors; Z95.9 Presence of cardiac and vascular implant and graft, unspecified ==

== ENCOUNTER → 2017-02-11 | Outpatient (CLI) | payer MEDICARE, OTHER | END | disposition disaster alternative care site (69) | LOC: GRAD 07:49 | DX: C50.412 Malignant neoplasm of upper-outer quadrant of left female breast (principal); D46.9 Myelodysplastic syndrome, unspecified; C73 Malignant neoplasm of thyroid gland; D61.818 Other pancytopenia; C79.51 Secondary malignant neoplasm of bone; D46.21 Refractory anemia with excess of blasts 1; H69.92 Unspecified Eustachian tube disorder, left ear; J06.9 Acute upper respiratory infection, unspecified; J01.00 Acute maxillary sinusitis, unspecified; H74.8X3 Other specified disorders of middle ear and mastoid, bilateral; Z79.811 Long term (current) use of aromatase inhibitors ==

== ENCOUNTER → 2017-02-17 | Outpatient (CLI) | payer MEDICARE, OTHER | END | disposition disaster alternative care site (69) | LOC: GRAD 15:30 | DX: G93.89 Other specified disorders of brain (principal); C50.412 Malignant neoplasm of upper-outer quadrant of left female breast; C79.51 Secondary malignant neoplasm of bone; D46.21 Refractory anemia with excess of blasts 1; H69.92 Unspecified Eustachian tube disorder, left ear; D61.818 Other pancytopenia; J06.9 Acute upper respiratory infection, unspecified; J01.00 Acute maxillary sinusitis, unspecified; I67.82 Cerebral ischemia ==